=== PATIENT | male | born 1950 | race Hispanic/Latino ===

== ENCOUNTER 2018-08-16 07:34 | Day surgery (SDC) | payer MEDICARE ==
[2018-08-11 14:41] VITALS: BMI 26.6
[2018-08-16] MEDS ORDERED: Propofol 10 mg/ml Inj (20 ML) ONE (08:35)
[2018-08-16] MEDS ORDERED: Sodium Chloride 0.9% 1,000 ML IV SCH (09:00)
[2018-08-16 09:56] VITALS: BP 126/76; PULSE 82; RESP 15; TEMP 98.2; O2SAT 96
== END 2018-08-16 10:40 | disposition home or self-care (01) ==
LOC: ENDO 07:34
PROVIDERS: ATTEND Specialist
DX: Z12.11 Encounter for screening for malignant neoplasm of colon (principal); Z86.010 Personal history of colon polyps; K57.30 Diverticulosis of large intestine without perforation or abscess without bleeding; D17.79 Benign lipomatous neoplasm of other sites; K64.8 Other hemorrhoids; I10 Essential (primary) hypertension; K21.9 Gastro-esophageal reflux disease without esophagitis
CPT/HCPCS: 45378; J2001; J2704; J7030